=== PATIENT | male | born 1995 | race Caucasian/White ===

== ENCOUNTER 2023-01-23 10:03 | Emergency (ER) | payer OTHER, SELFPAY ==
[2023-01-23 10:05] VITALS: BP 160/91; PULSE 86; RESP 17; TEMP 36.8; O2SAT 97; BMI 16.9
--- NOTE | 2023-01-23 10:18 | PC.NURSE ---
DR PITTS AT BEDSIDE
--- NOTE | 2023-01-23 10:26 | HMH.EDGENADL ---
Discharge Plan Disposition Patient Disposition: Home, Self-Care Activity Restrictions/Add. Instructions Additional Instructions/Restrictions: Apply 3 to 4 drops 3 times a day in the affected IV antibiotic solution you have been given. You may follow-up with an drafter civil engineering you are not improving. Return with any other concerns as well. Clinical Impressions Clinical Impression: Photokeratitis of left eye Discharge ED Provider: Orlando Giordano General Adult HPI General Chief complaint: Eye Problems Stated complaint: [id number] burn to eyes and arms Time Seen by Provider: 01/23/23 10:08 Mode of Arrival: Ambulatory Source of Information: Patient Limitations: No Limitations Description of Symptoms (Recalled from ER Triage Doc. by RN): PT REPORTS EYE PAIN AND BURING AFTER GRINDING METAL AT WORK YESTERDAY. History of Present Illness HPI narrative: Patient is a 27-year-old male here with left eye discomfort. 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 He does not have welders glasses but did have a full face shield on while he was working. Also had some gr that hit his left upper extremity and caused some superficial areas of burn that he has been treating at home. But he is here primarily for the left eye pain. No significant changes in vision no redness in the area he denies any metal that flew into his eye. States other people in his field and at his workplace have had welding ken of the eye in the past. From a similar mechanism. Related Data Allergies Allergy/AdvReac Type Severity Reaction Status Date / Time iodine Allergy Verified 01/23/23 10:24 [facility] Disclaimer: The information contained in this section may have been updated after the patient was seen, as this information can be updated by other users. Social History Smoking Status: Current every day smoker alcohol intake: never current occupational status: other Travel in the last 8 weeks: None ROS Obtained: Yes All systems reviewed & no additional complaints except as documented Physical Exam General General appearance: alert Eye Eye exam: Present normal appearance, PERRL, EOMI and other (On fluorescein exam there is no fluorescein uptake with bluelight exam. On slit-lamp exam lid lashes conjunctive a sclera cornea Iris and lens all appeared normal specifically no foreign body or evidence of inflammation); Absent scleral icterus, conjunctival redness, jaundice, conjunctival injection, discharge, nystagmus, miosis, mydriasis, periorbital swelling or periorbital tenderness Respiratory Respiratory exam: Present normal lung sounds bilaterally Cardiovascular Cardiovascular exam: Present regular rate; Absent tachycardia Neurological Exam Neurological exam: Present alert and oriented X3 Medical Decision Making Yannick Inquiry Pt receiving controlled substance: No Vital Signs: 01/23/23 10:05 Temperature 98.3 F Temperature Source Oral Pulse Rate [Radial] 86 Respiratory Rate 17 Blood Pressure [Right Arm] 160/91 H Blood Pressure Mean [Right Arm] 114 Blood Pressure Source [Right Arm] Automatic Cuff Blood Pressure Position [Right Arm] Sitting 02 Sat by Pulse Oximetry 97 Oxygen Delivery Method Room Air Orders (Tests/Meds): ED MEDICATIONS Generic Name Dose Route Start Last Admin Trade Name Dhavalq PRN Reason Stop Dose Admin Fluorescein Sodium 1 mg 01/23/23 10:25 Fluorescein Sodium 1mg Strip OP 01/23/23 10:26 ONCE ONE Neomycin/Polymyxin/Gramicidin 0 ml 01/23/23 10:25 Mxlbspal-Jspkgl-Masu Ophth Soln 10ml Bottle OP 01/23/23 10:26 ONCE ONE Tetracaine HCl 0 ml 01/23/23 10:25 Tetracaine 0.5% Opth Brunilda 15ml OP 01/23/23 10:26 ONCE ONE Medical Decision Narrative: 27-year-old with an objectively normal exam however has subjective symptoms which were improved completely with tetracaine. This is
[2023-01-23 10:41] VITALS: BP 160/91; PULSE 86; RESP 17; TEMP 36.8; O2SAT 97
== END 2023-01-23 10:41 | disposition home or self-care (01) ==
LOC: ER 10:36
PROVIDERS: Emergency Provider Student in an Organized Health Care Education/Training Program
DX: H16.132 Photokeratitis, left eye (principal); F17.210 Nicotine dependence, cigarettes, uncomplicated; W89.0XXA Exposure to welding light (arc), initial encounter
CPT/HCPCS: 99283

== ENCOUNTER 2023-07-30 10:42 | Emergency (ER) | payer BC, SELFPAY ==
[2023-07-30] VITALS (12 sets, daily range): BP systolic 123–156; BP diastolic 64–80; PULSE 50–78; RESP 13–20; TEMP 36.7–36.8; O2SAT 97–100; BMI 16.9
--- NOTE | 2023-07-30 10:44 | PC.NURSE ---
DR AGUIRRE AT BEDSIDE
--- NOTE | 2023-07-30 10:44 | ECG_ITS ---
APPROVED REPORT Exam: Resting ECG HR:68 bpm ECG Measurements Heart Rate 68 AXES OK 135 P 36 QRSd 91 QRS 80 QT 379 T 57 QTc 396 Conclusion SINUS RHYTHM POSSIBLE RIGHT VENTRICULAR CONDUCTION DELAY [RSR (QR) IN V1/V2] BORDERLINE ECG UNCONFIRMED REPORT Electronically signed by : KYAW AGUIRRE, 07/30/2023 12:04:09
--- NOTE | 2023-07-30 10:48 | CT_ITS ---
FINAL REPORT TECHNIQUE: Axial imaging of the chest is obtained after the administration of contrast. 3-D MIP reformatted images were also obtained and reviewed per PE protocol. CLINICAL HISTORY: coarctation s/p stent years ago, CP to back FINDINGS: The pulmonary arteries are well filled. There is no evidence of pulmonary embolus. Metallic stent in the aortic arch create significant artifact related to metal. A portion of the aorta is covered by the stent. This portion is limited by artifact. The remainder of the aorta is intact without aneurysm or dissection. There is no mediastinal, hilar, or axillary lymphadenopathy. The lungs are clear. There is no pleural or pericardial effusion. Limited evaluation of the upper abdomen is without acute abnormality. No acute osseous abnormality. IMPRESSION: No aortic dissection or aneurysm. Limited evaluation secondary to prior stent placement. No intrathoracic abnormality identified. Reviewed, Interpreted and Dictated by Temi Toledo MD Transcribed by America Valentin Authenticated and [facility]
--- NOTE | 2023-07-30 10:52 | HMH.EDCP ---
Discharge Plan Disposition Patient Disposition: Home, Self-Care Prescriptions Prescriptions: No Action No Known Home Medications Referrals Follow up/Referrals: Gigi Gibbons MD [Primary Care Provider] - See instructions Activity Restrictions/Add. Instructions Additional Instructions/Restrictions: At this time it was felt you are safe to be discharged home. If new or worsening symptoms please do not hesitate to return the emergency department. 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 Clinical Impressions Clinical Impression: Chest pain Stand Alone Forms Stand Alone Forms: Work/School Release Instructions Patient Instructions: DI for Atypical Chest Pain Discharge ED Provider: Torey Lemus General Chief Complaint: Chest Pain Stated Complaint: CHEST PAIN Time Seen by Provider: 07/30/23 10:42 Mode of Arrival: EMS Source of Information: Patient Limitations: No Limitations Description of Symptoms (Recalled from ER Triage Doc. by RN): c/o chest pain that started at 0830 this morning while at work. History of Present Illness HPI narrative: Patient is a 27-year-old male with past medical history of aortic coarctation status post stenting who presents emergency department for evaluation of chest pain. Onset was acute, occurring earlier this morning, substernal, radiating through to the back. Back pain has resolved, patient contacted EMS for continued substernal chest pain, partially responsive to nitroglycerin prior to arrival. Aspirin administered prior to arrival. No other acute complaints at this time. Related Data Home Medications Medication Instructions Recorded Confirmed No Known Home Medications 06/18/23 06/29/23 Allergies Allergy/AdvReac Type Severity Reaction Status Date / Time iodine Allergy Verified 06/29/23 13:47 [facility] Disclaimer: The information contained in this section may have been updated after the patient was seen, as this information can be updated by other users. Surgical History H/O heart artery stent History of appendectomy Family History Father Coronary artery disease Social History Smoking Status: Current every day smoker tobacco type: cigarettes alcohol intake: never substance use type: denies use current occupational status: unemployed Travel in the last 8 weeks: None household members: significant other and other housing: house ROS Obtained: Yes Systems reviewed as appropriate & no additional complaints except as documented Physical Exam General General appearance: alert and in no apparent distress Head Head exam: atraumatic and normocephalic Eye Eye exam: Present PERRL ENT ENT exam: Present mucous membranes moist Neck Neck exam: Present normal inspection Chest Chest inspection: Present normal inspection and symmetric chest wall rise Respiratory Respiratory exam: Present normal lung sounds bilaterally; Absent respiratory distress Cardiovascular Cardiovascular exam: Present regular rate and normal rhythm Abdominal Exam Abdominal exam: Present soft; Absent tenderness Extremities Exam Extremities exam: Present normal inspection Neurological Exam Neurological exam: Present alert Psychiatric Psychiatric exam: Present normal affect Skin Skin exam: Present warm and dry HEART Score HEART Score HEART Score assessment performed?: Yes History (anamnesis): Moderately suspicious ECG: Normal Age: <45 years Risk factors: 1-2 risk factors Troponin: </= normal limit HEART Score: 2 Critical Care Critical Care Time Critical Care Time: No Medical Decision Making Yannick Inquiry Pt receiving controlled substance: No Vital Signs Vital Signs: 07/30/23 10:42 07/30/23 10:51 07/30/23 10:47 Temperature 98.3 F Temperature Source Oral Pulse Rate 78 78 Pulse Rate [Left Radial] 74 Respiratory Rate 16 13 Blood Pressure Blood Pressure [Right Arm] 156/78 H Blood Pressure Mean Blood Pressure Mean [Right Arm] 104 Blood Pressure Source Blood Pressure Position Blood Pressure Position [Right Arm] Standing 02 Sat by Pulse Oximetry 98 99 Oxygen Delivery Method Room Air 07/30/23 11:00 07/30/23 11:30 07/30/23 12:00 Temperature Temperature Source Pulse Rate 63 67 57 L Pulse Rate [Left Radial] Respiratory Rate 18 20 18 Blood Pressure 136/79 154/80 H 142/80 H Blood Pressure [Right Arm] Blood Pressure Mean 103 102 94 Blood Pressure Mean [Right Arm] Blood Pressure Source Blood Pressure Position Blood Pressure Position [Right Arm] 02 Sat by Pulse Oximetry 98 98 98 Oxygen Delivery Method 07/30/23 12:30 07/30/23 13:00 07/30/23 13:30 Temperature Temperature Source Pulse Rate 63 60 66 Pulse Rate [Left Radial] Respiratory Rate 18 18 18 Blood Pressure 143/73 H 133/67 133/67 Blood Pressure [Right Arm] Blood Pressure Mean 93 85 82 Blood Pressure Mean [Right Arm] Blood Pressure Source Blood Pressure Position Blood Pressure Position [Right Arm] 02 Sat by Pulse Oximetry 99 99 99 Oxygen Delivery Method 07/30/23 14:00 07/30/23 14:30 07/30/23 14:49 Temperature 98.1 F Temperature Source Oral Pulse Rate 50 L 54 L 63 Pulse Rate [Left Radial] Respiratory Rate 16 18 18 Blood Pressure 123/64 125/68 125/68 Blood Pressure [Right Arm] Blood Pressure Mean 88 81 Blood Pressure Mean [Right Arm] Blood Pressure Source Automatic Cuff Blood Pressure Position Sitting Blood Pressure Position [Right Arm] 02 Sat by Pulse Oximetry 99 97 Oxygen Delivery Method Room Air Lab Data Labs: Lab Results 07/30/23 10:40: WBC 6.8, RBC 4.96, Hgb 15.5, Hct 45.3, MCV 91.4, MCH 31.4 H, MCHC 34.3, RDW 12.6, Plt Count 275, MPV 8.0, Neut % (Auto) 60.5, Lymph % (Auto) 27.4, Ripley % (Auto) 9.2, Eos % (Auto) 1.9, Baso % (Auto) 1.0, Neut # (Auto) 4.1, Lymph # (Auto) 1.9, Ripley # (Auto) 0.6, Eos # (Auto) 0.1, Baso # (Auto) 0.1, Sodium 137, Potassium 4.0, Chloride 103, Carbon Dioxide 33 H, Anion Gap 5.0, BUN 8 L, Creatinine 0.90, Estimated Creat Clear 108, Estimated GFR 102, Est GFR ( Amer) 123, Glucose 93, Calcium 9.1, Total Bilirubin 0.6, AST 26, ALT 19, Alkaline Phosphatase 45, Troponin I < 0.01, Total Protein 7.5, Albumin 4.2, Globulin 3.3 H, Albumin/Globulin Ratio 1.3 07/30/23 13:40: Troponin I < 0.01 07/30/23 10:40 07/30/23 10:40 Response Orders (Tests/Meds): ED MEDICATIONS Discontinued Medications Generic Name Dose Route Start Last Admin Trade Name Freq PRN Reason Stop Dose Admin Iopamidol 100 ml 07/30/23 11:24 07/30/23 11:25 Iopamidol-370 (76%);100ml Bottle IV 07/30/23 11:25 100 ml ONCE ONE Administration Morphine Sulfate 4 mg 07/30/23 10:48 07/30/23 10:56 Morphine 4mg/Ml Syringe IV 07/30/23 10:49 4 mg ONCE ONE Administration Nitroglycerin 0.4 mg 07/30/23 10:48 07/30/23 10:56 Nitroglycerin 0.4mg Sl Tablet SL 08/29/23 10:47 0.4 mg Q5MINP PRN Administration Chest Pain Sodium Chloride 50 ml 07/30/23 11:24 07/30/23 11:25 0.9 % Sodium Chloride 50 Ml Vial IV 07/30/23 11:25 50 ml ONCE ONE Administration Sodium Chloride 10 ml 07/30/23 11:24 Sodium Chloride 0.9% 10ml Syr (Rad Only) IV 08/29/23 11:23 NEEDED PRN Maintain IV Site ORDERS Category Date Time Status CT angio chest - dissection Stat Cat Scan 07/30/23 10:48 Completed CBC w/Auto Diff [Complete Blood Count Auto Diff] Stat Lab 07/30/23 10:40 Completed CMP [Comprehensive Metabolic Panel] Stat Lab 07/30/23 10:40 Completed Trop I [Troponin I] Stat Lab 07/30/23 10:40 Completed Troponin I Q3H Lab 07/30/23 13:40 Completed ECG Data Tracing #1: ECG Narrative: Independently interpreted by me, rate 68, rhythm is regular, axis is normal, no ST elevation in anatomical contiguous leads MDM Narrative Medical Decision Narrative: In summary patient is a 27-year-old male with past medical history described above who presents emergency department for evaluation of chest pain. Patient is hemodynamically stable nontoxic-appearing upon arrival, afebrile. Differential diagnosis includes aortic dissection, ACS, noncardiac chest pain, among others. Workup will be conducted with hematologic labs, chest x-ray, EKG, serial troponins. Initial inventions include morphine, nitroglycerin. Patient has received aspirin prior to arrival. Initial workup reviewed by me, hematologic labs are nonactionable, upon repeat evaluation patient continued to be well-appearing, subsequent workup serial troponins below detectable limit, CTA chest shows no acute pathology. Given this patient is appropriate for discharge at this time we will follow-up with cardiology on an outpatient basis.
[2023-07-30 10:56] LABS: Basophils # 0.1 K/mm3 (0-0.2); Eosinophils # 0.1 K/mm3 (0.0-0.4); Eosinophils % 1.9 % (0.1-12.0); Hematocrit 45.3 % (42.0-52.0); Hemoglobin 15.5 g/dL (14.1-18.0); Lymphocytes # 1.9 K/mm3 (0.7-4.5); Lymphocytes % 27.4 % (10-50); Mean Corpuscular HGB Conc 34.3 g/dL (31.8-35.4); Mean Corpuscular Hemoglobin 31.4 pg (27.0-31.2); Mean Corpuscular Volume 91.4 fl (80-94); Monocytes # 0.6 K/mm3 (0.1-1.0); Monocytes % 9.2 % (1.7-9.3); Neutrophils # 4.1 K/mm3 (1.8-7.8); Neutrophils % 60.5 % (37.0-80.0); Platelet Count 275 K/mm3 (142-424); Red Blood Count 4.96 M/mm3 (4.60-6.20); Red Cell Distribution Width 12.6 % (11.5-17.5); White Blood Count 6.8 K/mm3 (4.8-10.8)
[2023-07-30] MEDS: NITROGLYCERIN 0.4MG SL TABLET 0.400000000000000022 MG SL (10:56)
[2023-07-30] MEDS: MORPHINE 4MG/ML SYRINGE 4 MG IV (10:56)
[2023-07-30 11:03] LABS: Chloride 103 mmol/L (98-107); Sodium 137 mmol/L (136-145)
[2023-07-30 11:06] LABS: Alanine Aminotransferase 19 U/L (12-78); Albumin Level 4.2 g/dl (3.5-5.0); Albumin/Globulin Ratio 1.3 (1.1-1.8); Alkaline Phosphatase 45 U/L (38-126); Aspartate Amino Transferase 26 U/L (17-59); Bilirubin,Total 0.6 mg/dl (0.2-1.3); Blood Urea Nitrogen 8 mg/dl (9-20); Calcium 9.1 mg/dl (8.4-10.2); Carbon Dioxide 33 mmol/L (22.0-30.0); Creatinine Clearance Estimated 108 mL/min (50-200); Estimated Glomerular Filt Rate 102 ml/min (>60); GFR (African American) 123 ML/MIN (>60); Globulin 3.3 g/dL (1.3-3.2); Glucose 93 mg/dl (74-100); Total Protein,Serum 7.5 g/dl (6.3-8.2)
--- NOTE | 2023-07-30 11:11 | PC.NURSE ---
PT TO CT
[2023-07-30 11:18] LABS: Troponin I < 0.01 ng/ml (0.00-0.034)
--- NOTE | 2023-07-30 11:20 | PC.NURSE ---
PT RETURNED FROM CT
[2023-07-30] MEDS: 0.9 % SODIUM CHLORIDE 50 ML VIAL IV (11:25)
[2023-07-30] MEDS: IOPAMIDOL-370 (76%);100ML BOTTLE 100 ML IV (11:25)
--- NOTE | 2023-07-30 12:02 | PC.NURSE ---
pt up to restroom
--- NOTE | 2023-07-30 13:00 | PC.NURSE ---
ROUNDED ON PT, UPDATED ON POC. CALL LIGHT WITHIN REACH
--- NOTE | 2023-07-30 13:40 | PC.NURSE ---
REPEAT TROP SENT
[2023-07-30 14:11] LABS: Troponin I < 0.01 ng/ml (0.00-0.034)
--- NOTE | 2023-07-30 14:34 | PC.NURSE ---
PT AND FAMILY UPDATED AT THIS TIME. NO NEEDS VOICED. PT RESTING ON RIGHT SIDE. CALL LIGHT WITHIN REACH
--- NOTE | 2023-07-30 14:53 | PC.NURSE ---
pt discharged friend came and asked for sprite and something to eat for him before they left
== END 2023-07-30 14:49 | disposition home or self-care (01) ==
PROVIDERS: Emergency Provider Emergency Medicine; PCP Family Medicine
DX: R07.9 Chest pain, unspecified (principal); F17.210 Nicotine dependence, cigarettes, uncomplicated
CPT/HCPCS: 71275; 80053; 84484; 85025; 93005; 96374; 99285; Q9967

== ENCOUNTER 2023-08-21 06:20 | Outpatient (CLI) | payer BC, SELFPAY ==
--- NOTE | 2023-08-21 06:30 | CT_ITS ---
APPROVED REPORT Senior C Software Engineer: CLINICAL INDICATION Chest Pain TECHNIQUE Image Acquisition: A 128 slice MDCT scanner (Arista Powera View) was used for data acquisition. A noncontrast coronary calcium scan was performed. A CT attenuation threshold of 130 Hounsfield units (HU) was used for the detection of calcium in contiguous voxels of 1 sq mm in area to be counted as individual lesions. Bolus tracking in the ascending aorta with a threshold of 180 HU was performed. Immediately afterwards, ECG synchronized cardiac CT was then performed from the cardiac base to apex using retrospective gating with ECG tube current modulation. A total of 85 mL of Isovue 370 mg/mL contrast medium was administered at 5 mL/sec followed by a saline flush using a biphasic injection protocol. A tube voltage of 120 KVp was used. The patient received the following medications prior to the cardiac CT. 5 mg of intravenous metoprolol 0.8 mg of sublingual nitroglycerin The average heart rate at the time of acquisition was 51 bpm and regular. Image Reconstruction Transaxial images were reconstructed at 0.67 mm slide thickness. Data was reviewed interactively on an advanced workstation capable of 2 and 3-dimensional displays in all conventional reconstruction formats, including multiplanar reformations, maximum intensity projections, curved multiplanar reformations, and volume rendered reconstructions. When applicable, selected routine images describing the relevant coronary anatomy and pathology were saved and sent to PACS. Complications None Technical Quality Overall image quality was good. Coronary artery opacification was adequate. Total DLP (Dose-Length Product) is 1782.6 mGy-cm. The reported value represents the total of one or more individual components during the CT acquisition of this date and at this time, and as such, the same value may appear in more than one CT report depending on the interpreting/reporting physicians. COMPARISON None FINDINGS CT Coronary Calcium Scoring LMA (Left Main Artery) = 0 LAD (Left Anterior Descending) = 0 LCX (Left Coronary Circumflex) = 0 RCA (Right Coronary Artery) = 0 Total Calcium Score = 0 using the AJ-130 method. The interpretation of the calcium heart score is based on the following continuum*: 0 = no calcified plaque detected (risk of coronary artery disease is very low ??? less than 5%) 1-10 = calcium detected in extremely minimal levels (risk of coronary diseases is still low ??? less than 10%) 11-100 = mild levels of plaque detected with certainty (mild or minimal narrowing of heart arteries is likely) 101-400 = definite,at least moderate levels of plaque detected (relatively high risk of a heart attack within 3-5 years) >401-999 = extensive levels of plaque detected (high risk of heart attack, high levels of vascular disease are present, high likelihood of at least one significant coronary narrowing) *The calcium heart score quantifies the burden of coronary calcification/plaque in the coronary arteries. The calcium heart score is not able to evaluate the presence or burden of non-calcified (i.e. soft) plaque. There is no identifiable calcification in the aortic valve, mitral annulus or mitral valve, pericardium, or myocardium. Coronary CT Angiography The coronary arterial system is left dominant. Quantitative Stenosis Grading: Left Main (LM): The left main originates normally from the left sinus of Valsalva. The LM trifurcates into the left anterior descending artery, ramus intermedius, and left circumflex artery. The LM is patent with no evidence of atherosclerosis. Left Anterior Descending (LAD) and Diagonal Branches: The LAD gives off 3 diagonal branch(es). The LAD and its branches are patent with no evidence of atherosclerosis. There is no evidence of LAD-myocardial bridge. Ramus-intermedius (RI): The RI is patent. Left Circumflex (LCX) and Obtuse Marginals (OM): The LCX gives off 2 Obtuse Marginal (OM) branch(es). The LCX and its branches are patent with no evidence of atherosclerosis. Right Coronary Artery (RCA): The RCA originates normally from the right sinus of Valsalva. The RCA and its branches are patent with no evidence of atherosclerosis. Non-Coronary Cardiac Findings: Analysis of the left ventricular (LV) structure and function was performed after 3-D reconstruction of the LV from axial images, with user-corrected automatic contouring for assessment of LV volumes and user-defined reconstruction from oblique planes for measurement of 3-D cardiac structure and function. -The left ventricle systolic function is normal. -There is no left atrial appendage filling defect. Two right pulmonary veins and two left pulmonary veins drain normally into the left atrium. -No pericardial thickening or calcification. -Central and branch pulmonary arteries in the [id number] are unremarkable. -Thoracic aorta within the visualized thoracic aortic-branches in the [id number] is unremarkable. Extracardiac Structures Incidental finding of aortic stent in the thoracic descending aorta (history of coarctation of aorta). IMPRESSION -No coronary calcification with an Agatston score = 0 using the AJ-130 method. -No evidence of significant flow-limiting atherosclerosis of the coronary arteries. -No evidence of coronary anomalies or myocardial bridges. -CAD-RADS 0. Management recommendations per ACC/AHA guidelines*, as clinically appropriate. -Incidental finding of aortic stent in the thoracic descending aorta (history of coarctation of aorta). *Recommendations: CAD RADS 0: Reassurance. Consider non-atherosclerotic causes of chest pain. CAD RADS 1: Consider non-atherosclerotic causes of chest pain. Consider preventive therapy and risk factor modification. CAD RADS 2: Consider non-atherosclerotic causes of chest pain. Consider preventive therapy and risk factor modification, particularly for patients with nonobstructive plaque in multiple segments. CAD RADS 3: Consider further functional testing. Consider symptom-guided anti-ischemic and preventive pharmacotherapy as well as risk factor modification per published guideline statements. CAD RADS 4A: Consider further functional testing or invasive coronary angiography with revascularization per published guideline statements. Consider symptom-guided anti-ischemic and preventive pharmacotherapy as well as risk factor modification per published guideline statements. CAD RADS 4B: Invasive coronary angiography recommended with revascularization per published guideline statements. Consider symptom-guided anti-ischemic and preventive pharmacotherapy as well as risk factor modification per published guideline statements. CAD RADS 5: Consider invasive angiography and/or viability assessment with revascularization per published guideline statements. Consider symptom-guided anti-ischemic and preventive pharmacotherapy as well as risk factor modification per published guideline statements. CRITICAL RESULT None COMMUNICATION Per this written report The coronary and cardiac findings of this CCTA were reviewed, reported, and signed by Angel Godfrey MD (Dance Director) Conclusion Electronically signed by : Bonnie Godfrey MD 08/25/2023 13:44:08
--- NOTE | 2023-08-21 07:20 | CA_ITS ---
APPROVED REPORT EXAM: Comprehensive 2D, Doppler, and color-flow Echocardiogram Car Shakeout Operator: GER Breaux, RVS Ht: 6 ft 3 in Wt: 137lbs BSA: 1.87 BP: 135/89 mmHg Indications: CP, HX-Coarctation stented age 14 Echo Enhancing Agent Comments: Low parasternal windows due to extreme body habitus 2D Dimensions IVSd 0.81 cm LVEF (Visual) 51.60 % PWd 0.92 cm LVDd 3.89 cm LVDs 2.88 cm Left Atrium 1.64 cm M-Mode Dimensions LA Diam 2.39 cm (1.9-4.0) EPSs 0.36 cm TAPSE 2.12 (<1.7) LV Diastology E Decel Time 127 (160-240 msec) E/A Ratio 3.85 MED A' 5.70 cm/s LAT A' 3.80 cm/s Aortic Valve RONNIE Index 0.88 cm2/m2 AoV Peak Rob. 114.0 (50-130 cm/s) AO Peak GR. 5.20 mmHg AO Mean GR. 2.70 (<5 mmHg) AO VTI 23.5 (18-25 cm) RONNIE (VTI) 1.68 (2.5-4.5 cm2) Mitral Valve MV A Velocity 24.0 (40-130 cm/s) E/A Ratio 3.85 Pulmonary Valve PV Peak Velocity 61.0 (50-150 cm/s) Tricuspid Valve TR P. Velocity 181.00 cm/s RAP Estimate 10.00 mmHg RVSP 23.10 mmHg Left Ventricle The left ventricle is normal size. The left ventricular systolic function is normal. The left ventricular ejection fraction is within the normal range. There is normal left ventricular wall thickness. There is normal LV segmental wall motion. The left ventricular diastolic function is normal. LVEF is 55%. Right Ventricle The right ventricle is normal size. The right ventricular systolic function is normal. Atria The left atrium size is normal. The right atrium size is normal. There is no Doppler evidence of interatrial shunt. Aortic Valve The aortic valve opens well. There is no aortic valvular stenosis. No aortic regurgitation is present. Mitral Valve The mitral valve is normal in structure. No evidence of mitral valve stenosis. There is no mitral valve regurgitation noted. Tricuspid Valve The tricuspid valve leaflets are thin and pliable. Trace tricuspid regurgitation. There is insufficient TR jet to estimate RVSP. Pulmonic Valve The pulmonic valve is not well-visualized. Great Vessels The aortic root is normal in size. The ascending aorta is not well-visualized. No evidence of coarctation of the aorta in the present study. The IVC is not well-visualized. Pericardium There is no pericardial effusion. Other Information Study Quality: Fair Conclusion Normal biventricular systolic function. No significant stenosis or regurgitation in the visualized valves. In the setting of known childhood history of coarctation of the aorta, no evidence of coarctation in this present study. Electronically signed by : Bonnie Godfrey MD 08/24/2023 22:17:21
[2023-08-21 07:27] VITALS: BMI 17.3
[2023-08-21 07:50] VITALS: BP 177/76; PULSE 60; RESP 16; O2SAT 98
[2023-08-21] MEDS: NITROGLYCERIN 0.4MG SL TABLET 0.800000000000000044 MG SL (07:50)
[2023-08-21 07:56] VITALS: BP 135/55; PULSE 63; RESP 16; O2SAT 99
[2023-08-21 08:02] VITALS: BP 129/48; PULSE 60; RESP 16; O2SAT 99
[2023-08-21] MEDS: METOPROLOL TARTRATE 5MG/5ML VIAL *IVABRADINE+METOPROLOL REGIMINE 5 MG IV (08:02)
[2023-08-21 08:12] VITALS: BP 117/59; PULSE 54; RESP 16; O2SAT 99
[2023-08-21] MEDS: 0.9 % SODIUM CHLORIDE 50 ML VIAL IV (08:55)
[2023-08-21] MEDS: SODIUM CHLORIDE 0.9% 10ML SYR (RAD ONLY) 10 ML IV (08:55)
[2023-08-21] MEDS: IOPAMIDOL-370 (76%);100ML BOTTLE 85 ML IV (08:56)
== END 2023-08-21 23:59 | disposition home or self-care (01) ==
PROVIDERS: PCP Family Medicine; Visit Provider Nurse Practitioner Family
DX: R07.9 Chest pain, unspecified (principal); R01.1 Cardiac murmur, unspecified; Q25.1 Coarctation of aorta; Z82.49 Family history of ischemic heart disease and other diseases of the circulatory system; R94.31 Abnormal electrocardiogram [ECG] [EKG]; F17.210 Nicotine dependence, cigarettes, uncomplicated
CPT/HCPCS: 75571; 75574; 93306; Q9967